=== PATIENT | male | born 1985 | race American Indian/Alaskan Native ===

== ENCOUNTER 2016-10-30 14:38 | Emergency (ER) | payer MEDICAID ==
[2016-10-30 15:41] VITALS: BP 127/81
[2016-10-30] MEDS ORDERED: Lidocaine 1% with EPINEPHrine 1:100,000 20 ML MDV INJECT ONE (15:53)
--- NOTE | 2016-10-30 15:56 | EDM.PDOC ---
ED HPI GENERAL MEDICAL PROBLEM - General Chief Complaint: Laceration Stated Complaint: CUT HAND Time Seen by Provider: 10/30/16 15:54 Source of Information: Reports: Patient History Limitations: Reports: No Limitations - History of Present Illness INITIAL COMMENTS - FREE TEXT/NARRATIVE: Pt states that he cut his hand on a pocket knife. Laceration noted to left palm. bleeding controlled Onset: Today Duration: Constant Location: Reports: Upper Extremity, Left Quality: Reports: Ache Severity: Mild Improves with: Reports: None Worsens with: Reports: None Context: Reports: Activity Associated Symptoms: Reports: No Other Symptoms - Related Data Allergies Allergy/AdvReac Type Severity Reaction Status Date / Time No Known Allergies Allergy Verified 08/28/15 11:26 Home Meds: Home Meds . [No Known Home Meds] 05/15/14 [History] Past Medical History - Past Health History Medical/Surgical History: Denies Medical/Surgical History HEENT History: Reports: None Cardiovascular History: Reports: None Respiratory History: Reports: None Gastrointestinal History: Reports: None Genitourinary History: Reports: None Musculoskeletal History: Reports: None Neurological History: Reports: None Psychiatric History: Reports: None Endocrine/Metabolic History: Reports: None Hematologic History: Reports: None Immunologic History: Reports: None Oncologic (Cancer) History: Reports: None Dermatologic History: Reports: None Social & Family History - Family History Family Medical History: Noncontributory - Tobacco Use Smoking Status *Q: Never Smoker Second Hand Smoke Exposure: No - Alcohol Use Days Per Week of Alcohol Use: 0 - Recreational Drug Use Recreational Drug Use: Yes Drug Use in Last 12 Months: Yes Recreational Drug Type: Reports: Marijuana/Hashish Recreational Drug Use Frequency: Socially - Living Situation & Occupation Living situation: Reports: Occupation: Employed ED ROS GENERAL - Review of Systems Review Of Systems: ROS reveals no pertinent complaints other than HPI. ED EXAM, SKIN/RASH Exam: See Below Exam Limited By: No Limitations General Appearance: Alert, WD/WN, No Apparent Distress Respiratory/Chest: No Respiratory Distress, Lungs Clear, Normal Breath Sounds, No Accessory Muscle Use, Chest Non-Tender Cardiovascular: Normal Peripheral Pulses, Regular Rate, Rhythm, No Edema, No Gallop, No JVD, No Murmur, No Rub Extremities: Normal Inspection, Normal Range of Motion, Non-Tender, No Pedal Edema, Normal Capillary Refill Skin: Warm, Dry, Intact Location, Skin: Palms Characteristics: Linear ED SKIN PROCEDURES - Laceration/Wound Repair Left Hand Lac/Wound length In cm: 4 Appearance: Subcutaneous Distal NVT: Neuro & Vascular Intact Anesthetic Type: Local Local Anesthesia - Lidocaine (Xylocaine): 1% with EPI Local Anesthetic Volume: Other (7cc) Skin Prep: Chlorhexidine (Hibiciens), Providone-Iodine (Betadine), Saline Saline Irrigation (cc's): 20 Closed with: Sutures Suture Size: 3-0 Suture Type: Nylon Sterile Dressing Applied: None Tetanus Status Addressed: Yes Complications: No Course - Vital Signs Last Recorded V/S: Last Vital Signs Temp 97.2 F 10/30/16 15:35 Pulse 60 10/30/16 15:35 Resp 18 10/30/16 15:35 BP 127/81 10/30/16 15:35 Pulse Ox 100 10/30/16 15:35 - Orders/Labs/Meds Meds: Medications Discontinued Medications Generic Name Dose Route Start Last Admin Trade Name Geoff PRN Reason Stop Dose Admin Lidocaine/Epinephrine 20 ml 10/30/16 15:53 10/30/16 16:00 Xylocaine 1% With Epinephrine 1:100,000 INJECT 10/30/16 15:54 20 ml ONETIME ONE Administration Departure - Departure Time of Disposition: 16:25 Disposition: Home, Self-Care 01 Condition: Good Clinical Impression: Hand laceration Qualifiers: Encounter type: initial encounter Laterality: left Qualified Code(s): S61.412A - Laceration without foreign body of left hand, initial encounter - Discharge Information Instructions: Laceration Care, Adult Forms: ED Department Discharge Additional Instructions: Keep hand clean and dry. Follow up in clinic in 7 days for suture removal. return for any worsening symptoms.
== END 2016-10-30 16:34 | disposition home or self-care (01) ==
LOC: DL.ED 14:38
DX: S61.412A Laceration without foreign body of left hand, initial encounter (principal); W26.0XXA Contact with knife, initial encounter
CPT/HCPCS: 12002; 99282

== ENCOUNTER 2016-12-04 13:52 | Emergency (ER) | payer MEDICAID ==
[2016-12-04 16:49] VITALS: BP 139/91
[2016-12-04] MEDS ORDERED: Tetracaine HCl/PF 0.5% 4 ML Bottle EYEBOTH ONE (16:50)
[2016-12-04] MEDS ORDERED: Fluorescein 1 MG Ophth Strip EYELF ONE (16:50)
[2016-12-04] MEDS ORDERED: Acetaminophen/HYDROcodone 325-5 MG Tab PO ONE (16:53)
[2016-12-04] MEDS ORDERED: Ibuprofen 600 MG Tab PO ONE (16:53)
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
[2016-12-04] MEDS ORDERED: Ciprofloxacin 0.3% Ophth Soln 2.5 ML Bottle EYELF ONE (17:20)
== END 2016-12-04 17:23 | disposition home or self-care (01) ==
LOC: DL.ED 13:52
DX: S05.02XA Injury of conjunctiva and corneal abrasion without foreign body, left eye, initial encounter (principal); X58.XXXA Exposure to other specified factors, initial encounter
CPT/HCPCS: 99283; A9270

== ENCOUNTER 2017-04-16 13:16 | Emergency (ER) | payer MEDICAID ==
[2017-04-16 13:29] VITALS: BP 140/79
[2017-04-16] MEDS ORDERED: Sodium Chloride 0.9% 10 ML Syringe FLUSH PRN (13:33)
[2017-04-16] MEDS ORDERED: GI Cocktail Oral Solution 30 ML PO ONE (13:34)
[2017-04-16 14:07] LABS: ANION GAP 11.6; CHLORIDE,CL 105 mmol/L (101-111); SODIUM,NA 137 mmol/L (135-145)
[2017-04-16] MEDS ORDERED: Iopamidol 612 MG/ML 75 ML Bottle IVPUSH ONE (14:19)
--- NOTE | 2017-04-16 15:28 | EDM.PDOC ---
Scribed by Evelina Gordon 04/16/17 1528 for Toño Locke MD ED HPI GENERAL MEDICAL PROBLEM - General Chief Complaint: Abdominal Pain Stated Complaint: CHEST PAIN TO BACK Time Seen by Provider: 04/16/17 13:29 Source of Information: Reports: Patient, RN, RN Notes Reviewed History Limitations: Reports: No Limitations - History of Present Illness INITIAL COMMENTS - FREE TEXT/NARRATIVE: Patient complains of epigastric abdominal pain x2 weeks with onset of left upper quadrant pain 4 to 5 days ago. Pain radiates to the mid upper back. He denies any fever or chills. It seems to be worse 3 to 4 hours after eating. He had no relieve with Advil. Just brief relieve with Tums. No diarrhea or constipation. Duration: Getting Worse Location: Reports: Abdomen Quality: Reports: Ache Severity: Severe Improves with: Reports: None Worsens with: Reports: None Associated Symptoms: Reports: No Other Symptoms Left Upper Back Pain Score (Numeric/FACES): 10 - Related Data Allergies Allergy/AdvReac Type Severity Reaction Status Date / Time No Known Allergies Allergy Verified 04/16/17 13:23 Home Meds: Home Meds . [No Known Home Meds] 05/15/14 [History] Past Medical History - Past Health History Medical/Surgical History: Denies Medical/Surgical History HEENT History: Reports: None Cardiovascular History: Reports: None Respiratory History: Reports: None Gastrointestinal History: Reports: None Genitourinary History: Reports: None Musculoskeletal History: Reports: None Neurological History: Reports: None Psychiatric History: Reports: None Endocrine/Metabolic History: Reports: None Hematologic History: Reports: None Immunologic History: Reports: None Oncologic (Cancer) History: Reports: None Dermatologic History: Reports: None Social & Family History - Family History Family Medical History: Noncontributory - Tobacco Use Smoking Status *Q: Never Smoker Second Hand Smoke Exposure: No - Caffeine Use Caffeine Use: Reports: Soda Other Caffeine Use: 1 can/day - Alcohol Use Days Per Week of Alcohol Use: 1 Number of Drinks Per Day: 4 Total Drinks Per Week: 4 - Recreational Drug Use Recreational Drug Use: Yes Drug Use in Last 12 Months: Yes Recreational Drug Type: Reports: Marijuana/Hashish Recreational Drug Use Frequency: Socially - Living Situation & Occupation Living situation: Reports: Occupation: Employed ED ROS GENERAL - Review of Systems Review Of Systems: ROS reveals no pertinent complaints other than HPI. ED EXAM, GI/ABD - Physical Exam Exam: See Below Exam Limited By: No Limitations General Appearance: Alert, WD/WN, No Apparent Distress Eyes: Bilateral: Normal Appearance Nose: Normal Inspection, Normal Mucosa, No Blood Throat/Mouth: Normal Inspection, Normal Lips, Normal Teeth, Normal Gums, Normal Oropharynx, Normal Voice, No Airway Compromise Head: Atraumatic, Normocephalic Neck: Normal Inspection, Supple, Non-Tender, Full Range of Motion Respiratory/Chest: No Respiratory Distress, Lungs Clear, Normal Breath Sounds, No Accessory Muscle Use, Chest Non-Tender Cardiovascular: Normal Peripheral Pulses, Regular Rate, Rhythm, No Edema, No Gallop, No JVD, No Murmur, No Rub GI/Abdominal Exam: Normal Bowel Sounds, Soft, No Distention, No Abnormal Bruit, Tender (at epigastric, right upper quadrant and left upper quadrant.). No: Guarding, Rigid, Rebound (Male) Exam: Deferred Rectal (Males) Exam: Deferred Back Exam: Normal Inspection, Full Range of Motion, Other (nontender to palpation in the area where he reports feeling the pain. ). No: CVA Tenderness (L), CVA Tenderness (R) Extremities: Normal Inspection, Normal Range of Motion, Non-Tender, Normal Capillary Refill, No Pedal Edema Neurological: Alert, Oriented, CN II-XII Intact, Normal Cognition, Normal Gait, Normal Reflexes, No Motor/Sensory Deficits Psychiatric: Normal Affect, Normal Mood Skin Exam: Warm, Dry, Intact, Normal Color, No Rash Course - Vital Signs Last Recorded V/S: Last Vital Signs Temp 36.8 C 04/16/17 13:23 Pulse 72 04/16/17 13:23 Resp 20 04/16/17 13:23 BP 140/79 04/16/17 13:23 Pulse Ox 100 04/16/17 13:23 - Orders/Labs/Meds Orders: Active Orders 24 hr Category Date Time Status Peripheral IV Care [RC] . DIRECTED Care 04/16/17 13:33 Active Sodium Chloride 0.9% [Saline Flush] Med 04/16/17 13:33 Active 10 ml FLUSH ASDIRECTED PRN Peripheral IV Insertion Adult [OM.PC] Stat Oth 04/16/17 13:32 Ordered Medication Orders Sodium Chloride (Saline Flush) 10 ml FLUSH ASDIRECTED PRN PRN Reason: Keep Vein Open Last Admin: 04/16/17 14:25 Dose: 10 ml Labs: Laboratory Tests 04/16/17 04/16/17 04/16/17 Range/Units 13:35 13:42 13:42 WBC 11.0 H (5.0-10.0) 10^3/uL RBC 4.95 (4.6-6.2) 10^6/uL Hgb 15.5 (14.0-18.0) g/dL Hct 44.9 (40.0-54.0) % MCV 90.7 (80-100) fL MCH 31.3 (27.0-34.0) pg MCHC 34.5 (33.0-35.0) g/dL Plt Count 249 (150-450) 10^3/uL Neut % (Auto) 56.5 (42.2-75.2) % Lymph % (Auto) 24.7 (20.5-50.1) % [place] % (Auto) 8.8 H (2-8) % Eos % (Auto) 9.6 H (1.0-3.0) % Baso % (Auto) 0.4 (0.0-1.0) % Sodium 137 (135-145) mmol/L Potassium 3.6 (3.6-5.0) mmol/L Chloride 105 (101-111) mmol/L Carbon Dioxide 24.0 (21.0-31.0) mmol/L Anion Gap 11.6 BUN 12 (7-18) mg/dL Creatinine 0.9 (0.6-1.3) mg/dL Est Cr Clr Drug Dosing 130.53 mL/min Estimated GFR (MDRD) > 60 BUN/Creatinine Ratio 13.33 Glucose 105 (74-105) mg/dL Calcium 9.1 (8.4-10.2) mg/dl Total Bilirubin 1.3 H (0.2-1.0) mg/dL AST 30 (10-42) IU/L ALT 35 (10-60) IU/L Alkaline Phosphatase 87 (42-121) IU/L Total Protein 7.6 (6.7-8.2) g/dl Albumin 4.8 (3.2-5.5) g/dl Globulin 2.8 Albumin/Globulin Ratio 1.71 Amylase 40 (28-100) U/L Lipase 12 L (22-51) U/L Urine Color Yellow (YELLOW) Urine Appearance Clear (CLEAR) Urine pH 6.0 (5.0-9.0) Ur Specific [place] 1.020 (1.005-1.030) Urine Protein Negative (NEGATIVE) Urine Glucose (UA) Negative (NEGATIVE) Urine Ketones Negative (NEGATIVE) Urine Occult Blood Trace-intact H (NEGATIVE) Urine Nitrite Negative (NEGATIVE) Urine Bilirubin Negative (NEGATIVE) Urine Urobilinogen 0.2 (0.2-1.0) mg/dL Ur Leukocyte Esterase Negative (NEGATIVE) Urine RBC 0-5 /HPF Urine WBC 0-5 (0-5/HPF) /HPF Ur Epithelial Cells Rare /HPF Urine Bacteria Not seen (0-FEW/HPF) /HPF Meds: Medications Generic Name Dose Route Start Last Admin Trade Name Freq PRN Reason Stop Dose Admin Sodium Chloride 10 ml 04/16/17 13:33 04/16/17 14:25 Saline Flush FLUSH 10 ml ASDIRECTED PRN Administration Keep Vein Open Discontinued Medications Generic Name Dose Route Start Last Admin Trade Name Freq PRN Reason Stop Dose Admin Al Hydroxide/Mg Hydroxide 30 ml 04/16/17 13:34 04/16/17 14:05 Gi Cocktail PO 04/16/17 13:35 30 ml ONETIME ONE Administration Iopamidol 75 ml 04/16/17 14:19 04/16/17 14:31 Isovue-300 (61%) IVPUSH 04/16/17 14:20 75 ml ONETIME ONE Administration - Radiology Interpretation Free Text/Narrative:: Abdomen CT: Fluid within the small bowel without evidence of mesenteric lymphadenopathy or bowel wall thickening. This may reflect viral gastroenteritis in the appropriate clinically situation. See rad report. Departure - Departure Time of Disposition: 15:20 Disposition: Home, Self-Care 01 Condition: Good Clinical Impression: Colitis Abdominal pain Qualifiers: Abdominal location: upper abdomen, unspecified Qualified Code(s): R10.10 - Upper abdominal pain, unspecified - Discharge Information Instructions: Abdominal Pain, Adult, [id number], Colitis Forms: ED Department Discharge Additional Instructions: Rx: Omeprazole 20mg Rx: Tramadol 50mg Follow up in clinic if not improving in 4 to 5 days. - My Orders Last 24 Hours: My Active Orders 04/16/17 13:32 Peripheral IV Insertion Adult [OM.PC] Stat 04/16/17 13:33 Peripheral IV Care [RC] . DIRECTED Sodium Chloride 0.9% [Saline Flush] 10 ml FLUSH ASDIRECTED PRN - Assessment/Plan Last 24 Hours: My Active Orders 04/16/17 13:32 Peripheral IV Insertion Adult [OM.PC] Stat 04/16/17 13:33 Peripheral IV Care [RC] . DIRECTED Sodium Chloride 0.9% [Saline Flush] 10 ml FLUSH ASDIRECTED PRN I have read and agree with the documentation that has been completed regarding this visit. By signing this record, I attest that the documentation was completed in my physical presence and is an accurate record of the encounter.
== END 2017-04-16 15:39 | disposition home or self-care (01) ==
LOC: DL.ED 13:16
DX: K52.9 Noninfective gastroenteritis and colitis, unspecified (principal)
CPT/HCPCS: 36415; 74177; 80053; 81001; 82150; 83690; 85025; 99285; A9270; J7050; Q9967

== ENCOUNTER 2018-12-21 10:46 | Emergency (ER) | payer MEDICAID ==
[2018-12-21 11:23] VITALS: BP 136/81; PULSE 68
--- NOTE | 2018-12-21 11:41 | EDM.PDOC ---
ED HPI GENERAL MEDICAL PROBLEM - General Chief Complaint: Gastrointestinal Problem Stated Complaint: DISCOMFORT Time Seen by Provider: 12/21/18 11:25 Source of Information: Reports: Patient History Limitations: Reports: No Limitations - History of Present Illness INITIAL COMMENTS - FREE TEXT/NARRATIVE: patient comes emergency Department today with complaints of rectal pain and pressure. He struggled with constipation over the weekend he took some laxatives and had a very large hard painful stools on Tuesday. Since that time he has had continued pain and pressure in his rectum. Every time that he has a bowel movement it is quite painful. He has not had much for bowel movements since Tuesday. His bloating is improved. His appetite is poor. No nausea and no vomiting. He has no abdominal pain. He has not struggled with constipation in the past. He has had no change in medications. Rectal Pain Score (Numeric/FACES): 8 - Related Data Allergies Allergy/AdvReac Type Severity Reaction Status Date / Time No Known Allergies Allergy Verified 12/21/18 11:23 Home Meds: Home Meds Ibuprofen 800 mg PO ASDIRECTED PRN 12/21/18 [History] Past Medical History - Past Health History Medical/Surgical History: Denies Medical/Surgical History HEENT History: Reports: None Cardiovascular History: Reports: None Respiratory History: Reports: None Gastrointestinal History: Reports: None Genitourinary History: Reports: None Musculoskeletal History: Reports: None Neurological History: Reports: None Psychiatric History: Reports: None Endocrine/Metabolic History: Reports: None Hematologic History: Reports: None Immunologic History: Reports: None Oncologic (Cancer) History: Reports: None Dermatologic History: Reports: None - Infectious Disease History Infectious Disease History: Reports: None Social & Family History - Family History Family Medical History: Noncontributory - Tobacco Use Smoking Status *Q: Never Smoker Second Hand Smoke Exposure: No - Caffeine Use Caffeine Use: Reports: Soda Other Caffeine Use: 1 can/day - Recreational Drug Use Recreational Drug Type: Reports: Marijuana/Hashish - Living Situation & Occupation Living situation: Reports: Occupation: Employed ED ROS GENERAL - Review of Systems Review Of Systems: ROS reveals no pertinent complaints other than HPI. ED EXAM, GI/ABD - Physical Exam Exam: See Below Exam Limited By: No Limitations General Appearance: Alert, WD/WN Respiratory/Chest: No Respiratory Distress, Lungs Clear Cardiovascular: Normal Peripheral Pulses, Regular Rate, Rhythm GI/Abdominal Exam: Soft, Non-Tender, No Distention, No Abnormal Bruit, Abnormal Bowel Sounds (hypoactive bowel sounds but normal.) Rectal (Males) Exam: Rectal Fissure (at the 12 o'clock position there is a anal fissure. There are no external or internal hemorrhoids. No perirectal abscess. ) . No: Hemorrhoids Course - Vital Signs Last Recorded V/S: Last Vital Signs Temp 36.1 C 12/21/18 11:14 Pulse 68 12/21/18 11:14 Resp 16 12/21/18 11:14 BP 136/81 12/21/18 11:14 Pulse Ox 98 12/21/18 11:14 - Radiology Interpretation Free Text/Narrative:: exam of the abdomen per radiology shows no acute findings I have concerns for some continued constipation when reviewed extemporaneously by myself. - Re-Assessments/Exams Free Text/Narrative Re-Assessment/Exam: 12/21/18 19:24 I discussed with the patient that he has an anal fissure of the rectum. I do not find any internal/external hemorrhoids abscess or other concerns.We'll give him some MiraLAX to help with making his bowel movements very easy and smooth also some nitroglycerin cream with lidocaine and he can continue to use the Tucks pads and the Preparation H if he would like but the primary therapy is to increase hydration and soften the stools to prevent further damage to theanal fissure. He is comfortable with this plan and his questions are answered Departure - Departure Time of Disposition: 12:15 Disposition: Home, Self-Care 01 Clinical Impression: Acute anal fissure Constipation Qualifiers: Constipation type: unspecified constipation type Qualified Code(s): K59.00 - Constipation, unspecified - Discharge Information Instructions: Anal Fissure, Adult, [id number], Constipation, Adult, Easy-to- Read, How to Take a Sitz Bath Referrals: Jason Jones MD [Primary Care Provider] - Forms: ED Department Discharge Additional Instructions: Increase your water big time over the next few days. 12, 8 ounce glasses of water at minimum. Miralax powder, Take 8 capfuls and put in a gatorade bottle, drink over the next 1-2 hours. Then tomorrow 1 capful daily until easy smooth bowel movement. RX given to the patient. Nitroglycerin topical rectal ointment with lidocaine. apply twice daily for the next 8 weeks. RX given to the patient. Sitz bath During a sitz bath, the anus is immersed in warm water for approximately 10 to 15 minutes two to three times daily. Sitz bath kits are available in most drugstores, and portable bowls can be used at work or school. At home, it is also possible to use a bathtub for sitz bath by filling it with two to three inches of warm water. Additives such as soap and bubble bath are not recommended. After a sitz bath, it is important to towel or blow dry (with a chair car attendant on low heat setting) the anal area well. Return to the ED if new or worsening symptoms. Follow up with primary care in 1 week for recheck sooner if worse or not improving. - Assessment/Plan Assessment:: Constipation Anal fissure. Plan: Increase your water big time over the next few days. 12, 8 ounce glasses of water at minimum. Miralax powder, Take 8 capfuls and put in a gatorade bottle, drink over the next 1-2 hours. Then tomorrow 1 capful daily until easy smooth bowel movement. RX given to the patient. Nitroglycerin topical rectal ointment with lidocaine. apply twice daily for the next 8 weeks. RX given to the patient. Sitz bath During a sitz bath, the anus is immersed in warm water for approximately 10 to 15 minutes two to three times daily. Sitz bath kits are available in most drugstores, and portable bowls can be used at work or school. At home, it is also possible to use a bathtub for sitz bath by filling it with two to three inches of warm water. Additives such as soap and bubble bath are not recommended. After a sitz bath, it is important to towel or blow dry (with a chair car attendant on low heat setting) the anal area well. Return to the ED if new or worsening symptoms. Follow up with primary care in 1 week for recheck sooner if worse or not improving.
== END 2018-12-21 12:30 | disposition home or self-care (01) ==
LOC: DL.ED 10:46
DX: K60.0 Acute anal fissure (principal); K59.00 Constipation, unspecified
CPT/HCPCS: 74019; 99283-25

== ENCOUNTER 2022-03-08 11:33 | Emergency (ER) | payer MEDICAID | END 2022-03-08 14:29 | disposition left against medical advice (07) | LOC: DL.ED 11:33 | DX: Z53.21 Procedure and treatment not carried out due to patient leaving prior to being seen by health care provider (principal) ==

== ENCOUNTER 2024-01-11 17:04 | Emergency (ER) | payer MEDICAID ==
[2024-01-11 17:13] VITALS: BP 143/90; PULSE 76
== END 2024-01-11 18:14 | disposition home or self-care (01) ==
LOC: DL.ED 17:04
DX: S60.415A Abrasion of left ring finger, initial encounter (principal); W23.1XXA Caught, crushed, jammed, or pinched between stationary objects, initial encounter
CPT/HCPCS: 73140-F3; 99282; 99283

== ENCOUNTER 2024-10-21 16:29 | Emergency (ER) | payer MEDICAID ==
[2024-10-21] MEDS: Lactated Ringers 1,000 ML IV SCH (17:00)
[2024-10-21 17:04] LABS: BASOPHILS PERCENT AUTO 0.3 % (0.0-1.0); EOSINOPHILS PERCENT AUTO 1.0 % (1.0-3.0); LYMPHOCYTES PERCENT AUTO 8.6 % (20.5-50.1); MONOCYTES PERCENT AUTO 6.2 % (2-8); NEUTROPHILS PERCENT AUTO 83.9 % (42.2-75.2); PLATELET COUNT,PLT 238 10^3/uL (150-450); RED BLOOD CELL COUNT 4.86 10^6/uL (4.6-6.2); WHITE BLOOD CELL COUNT,WBC 17.3 10^3/uL (5.0-10.0)
[2024-10-21 17:25] LABS: A/G RATIO 1.6; ALANINE AMINOTRANSFERASE,ALT 34 U/L (16-63); ASPARTATE AMNIOTRANSFERASE,AST 20 U/L (15-37); BILIRUBIN TOTAL 0.6 mg/dL (0.2-1.0); BLOOD UREA NITROGEN,BUN 10 mg/dL (7-18); CARBON DIOXIDE,CO2 25 mmol/L (21-32); CHLORIDE,CL 104 mmol/L (98-107); CREATININE 0.86 mg/dL (0.70-1.30); EST CRCL DRUG DOSING (CG) 127.83 mL/min; GLUCOSE RANDOM 105 mg/dL (70-99); POTASSIUM,K 3.4 mmol/L (3.5-5.1); PROTEIN TOTAL,TP 7.2 g/dL (6.4-8.2); SODIUM,NA 138 mmol/L (136-145)
[2024-10-21 17:32] LABS: ESTIMATED GFR 114 mL/min (>=60)
[2024-10-21 17:33] LABS: ETHANOL BLOOD MEDICAL < 3 mg/dL (0)
[2024-10-21 17:52] LABS: APPEARANCE,URINE CLEAR (CLEAR); GLUCOSE,URINE NEGATIVE (NEGATIVE); OCCULT BLOOD,URINE NEGATIVE (NEGATIVE)
[2024-10-21] MEDS: Iopamidol 612 MG/ML 100 ML Bottle IVPUSH ONE (18:08)
[2024-10-21 21:06] VITALS: BP 139/97; PULSE 64
== END 2024-10-21 21:13 | disposition home or self-care (01) ==
LOC: DL.ED 16:29
DX: A08.4 Viral intestinal infection, unspecified (principal); K59.00 Constipation, unspecified; Z79.899 Other long term (current) drug therapy
CPT/HCPCS: 36415; 74177; 80053; 80307; 81003; 83605; 83690; 83735; 85025; 86140; 96361; 96374; 96376; 99284; J2270; J7120; Q9967; 99283